=== PATIENT | female | born 1995 | race Caucasian/White ===

== ENCOUNTER 2016-12-21 23:06 | Emergency (ER) | payer BC ==
[~2016-12-21] VITALS: Ht 172.7 cm; Wt 60.8 kg
--- NOTE | 2016-12-22 00:25 | NUR ---
PT BIB SELF AMBULATORY TO ER [facility], PT C/O HANDS SHAKING AFTER TAKING MELATONIN 2 HOURS AGO. VSS/RESP EVEN UNLABORED/NAD NOTED/SKIN WARM AND DRY/AO X4. AWAITING MD JESUS.
[2016-12-22] MEDS ORDERED: LORAZEPAM INJ 2 MG/ML VIAL IM ONE (00:30)
[2016-12-22 00:45] LABS: BASOPHILS # (AUTO) 0.1 /CMM (0.0-0.2); BASOPHILS % (AUTO) 0.6 % (0.0-2.0); EOSINOPHILS # (AUTO) 0.5 /CMM (0.0-0.7); EOSINOPHILS % (AUTO) 3.5 % (0.0-6.0); HEMATOCRIT 35 % (33-45); HEMOGLOBIN 11.6 g/dL (11.5-14.8); LYMPHOCYTES % (AUTO) 14.6 % (20.0-44.0); MEAN CORPUSCULAR HEMOGLOBIN 27 PG (26.0-33.0); MEAN CORPUSCULAR HGB CONC 33 g/dl (31.0-36.0); MEAN CORPUSCULAR VOLUME 81 fL (82-100); MONOCYTES # (AUTO) 0.9 /CMM (0.1-1.30); MONOCYTES % (AUTO) 6.6 % (2.0-12.0); NEUTROPHILS # (AUTO) 10.2 /CMM (1.8-8.9); NEUTROPHILS % (AUTO) 74.7 % (43.0-81.0); PLATELET COUNT (AUTO) 286 /CMM (150-450); RED BLOOD CELL COUNT(AUTO) 4.32 MIL/uL (4.0-5.2); WHITE BLOOD COUNT (AUTO) 13.6 K/uL (4.3-11.0)
[2016-12-22] MEDS ORDERED: LORAZEPAM INJ 2 MG/ML VIAL ONE (00:45)
[2016-12-22 00:56] LABS: CALCIUM, SERUM 9.8 mg/dL (8.5-10.1); CREATININE 0.7 mg/dL (0.6-1.3)
[2016-12-22] MEDS ORDERED: LORAZEPAM INJ 2 MG/ML VIAL IV ONE (01:00)
--- NOTE | 2016-12-22 01:25 | NUR ---
DR. MANDEL SPEAKING TO PT REGARDING RESULTS.
--- NOTE | 2016-12-22 01:30 | NUR ---
DPatient discharged to home in stable condition. Written and verbal after care instructions given. Patient verbalizes understanding of instruction. ambulatory with a steady gait. instructed not to drive. pt verbalize understanding. pt accompanied by friends
[2016-12-22 02:02] VITALS: BP 116/78
== END 2016-12-22 02:02 | disposition home or self-care (01) ==
LOC: ER 23:09
DX: F41.9 Anxiety disorder, unspecified (principal); R79.89 Other specified abnormal findings of blood chemistry; F84.0 Autistic disorder
CPT/HCPCS: 36415; 80048; 84703; 85025; 96372; 99284; A4606; J2060; Z7610